=== PATIENT | male | born 1990 | race African-American/Black ===

== ENCOUNTER 2018-06-14 00:46 | Emergency (ER) | payer SELFPAY ==
[~2018-06-14] VITALS: Ht 182.9 cm; Wt 81.6 kg
[2018-06-14] VITALS (7 sets, daily range): BP systolic 109–138; BP diastolic 57–72
[~2018-06-14 00:46] MED LIST: PEPCID40 MG PO; PRILOSEC OTC20 MG ORAL
[2018-06-14] MEDS ORDERED: NKM (00:56)
--- NOTE | 2018-06-14 00:59 | NUR ---
ED Nurse Note: Nursing super called for sitter.
--- NOTE | 2018-06-14 01:08 | Emergency Room Report ---
History of Present Illness General Chief Complaint: Behavioral Complaint Source: Patient Present Illness HPI Is a 27-year-old male brought in by police under 5150 with chief complaint of suicidal attempt. Per police, parents said that he try to cut himself with a knife. They were given knife away from him. He said that he's been depressed and hearing voices but has not had any formal psychiatric diagnosis. Patient said he took 3 tablets of melatonin. He denies suicidal thoughts homicidal thought. Parents said he had a knife and was about to cut his wrist Tuesday to get away from him. They called 911. Police found him on the bathroom floor. Patient denies any complaint other than generalized pain. Allergies: Coded Allergies: NO KNOWN ALLERGIES (Unverified Allergy, Unknown, 02/27/15) Patient History Past Medical History: see triage record, old chart reviewed Past Surgical History: none Family History: none Social History: other Immunizations: other Reviewed Nursing Documentation: PMH: Agreed; PSxH: Agreed Nursing Documentation-PM Past Medical History: No Stated History Review of Systems ENT: Denies: sore throat Cardiovascular: Denies: chest pain, palpitations Gastrointestinal/Abdominal: Denies: nausea, vomiting, diarrhea Musculoskeletal: Denies: back problems Skin: Denies: rash Neurological: Denies: REYNA, seizures All Other Systems: negative except mentioned in HPI Physical Exam Vital Signs Date Time Temp Pulse Resp B/P (MAP) Pulse Ox O2 Delivery O2 Flow Rate FiO2 06/14/18 00:51 97.0 74 16 138/68 99 Room Air vitals normal Sp02 EP Interpretation: reviewed, normal General Appearance: alert/responsive, no apparent distress, non-toxic Head: normocephalic, atraumatic Eyes: PERRL, EOMI ENT: oropharynx normal Neck: supple/symm/no masses Respiratory: effort normal, no rhonchi, no wheezing Cardiovascular: no murmur, gallop, rub Gastrointestinal: non-tender, no mass, non-distended, no rebound/guarding, normal bowel sounds Musculoskeletal: gait & station normal Neurologic: oriented x3, sensory intact, motor strength/tone normal Psychiatric: other - Depressed affect Suicide Risk Assessment: Suicidal Ideation: Yes Had intent to initiate attempt: Yes Pt's plan for suicide attempt: Yes Has means to complete attempt: Yes Skin: no rash, normal palpation Medical Decision Making Diagnostic Impression: Primary Impression: Alcohol intoxication Qualified Codes: F10.920 - Alcohol use, unspecified with intoxication, uncomplicated Additional Impression: Suicidal ideations ER Course Patient presents with acute alcohol intoxication and suicidal ideation. Alcohol level is elevated. We'll repeat. Once normalize, patient will be medically clear. Lab Results Impression labs unremarkable Last Vital Signs Date Time Temp Pulse Resp B/P (MAP) Pulse Ox O2 Delivery O2 Flow Rate FiO2 06/14/18 00:51 97.0 74 16 138/68 99 Room Air Status: improved Disposition: XFER TO PSYCH HOSP/UNIT Condition: Stable Porter Sen MD Jun 14, 2018 01:08
--- NOTE | 2018-06-14 01:15 | NUR ---
ED Nurse Note: pt was brought in by ra Chand from home c/o posible alcohol intoxication. lafd stated pt was telling his mom that he wants to hurt himself. pt denies suicidal ideation, pt stated he took 3 melatonin. as of this moment, pt appears asleep with no skin issues noted. staff will continue to keep a close observation of pt. saftey precautions have been taken, such as removing harmfull material in pt room, and stripping pt down to assess for harmfull objects.
[2018-06-14 01:41] LABS: ANION GAP 16 mmol/L (5-15); BLOOD UREA NITROGEN 16 mg/dL (7-18); CALCIUM 9.1 MG/DL (8.5-10.1); CARBON DIOXIDE 20 MMOL/L (21-32); CHLORIDE 103 MMOL/L (98-107); POTASSIUM 4.7 MMOL/L (3.5-5.1); SODIUM 139 MMOL/L (136-145)
[2018-06-14 01:46] LABS: ALANINE AMINOTRANSFERASE 27 U/L (12-78); ALBUMIN 4.4 G/DL (3.4-5.0); ALBUMIN/GLOBULIN RATIO 1.3 (1.0-2.7); ALKALINE PHOSPHATASE 45 U/L (46-116); ASPARTATE AMINO TRANSFERASE 40 U/L (15-37); BILIRUBIN,TOTAL 0.7 MG/DL (0.2-1.0)
[2018-06-14 02:07] LABS: BASOPHILS % (AUTO) 0.6 % (0.0-2.0); EOSINOPHILS % (AUTO) 0.2 % (0.0-3.0); HEMATOCRIT 43.9 % (42.0-52.0); HEMOGLOBIN 14.5 G/DL (14.2-18.0); LYMPHOCYTES % (AUTO) 17.7 % (20.0-45.0); MEAN CORPUSCULAR VOLUME 87 FL (80-99); NEUTROPHILS % (AUTO) 78.5 % (45.0-75.0); PLATELET COUNT 177 K/UL (150-450); RED BLOOD COUNT 5.06 M/UL (4.70-6.10); RED CELL DISTRIBUTION WIDTH 11.9 % (11.6-14.8); WHITE BLOOD COUNT 9.3 K/UL (4.8-10.8)
--- NOTE | 2018-06-14 02:11 | NUR ---
Pt belongings placed in locker#3.
--- NOTE | 2018-06-14 02:56 | NUR ---
ED Nurse Note: repeat alc lvl at 0730, 0800, per ERMD order.
--- NOTE | 2018-06-14 03:43 | NUR ---
ED Nurse Note: Pt offered sandwhich and milk, pt refused.
--- NOTE | 2018-06-14 05:05 | NUR ---
ED Nurse Note: Blood sugar recheck: 136
--- NOTE | 2018-06-14 08:20 | NUR ---
ED Nurse Note: Spoke to lab, green top for alcohol blood serum.
--- NOTE | 2018-06-14 10:43 | NUR ---
ED Nurse Note: report given to star nurse at [facility]. ambulance ETA [id number]
--- NOTE | 2018-06-14 11:28 | NUR ---
ED Nurse Note: [facility] is here to picking tech the patient. report given to star saldana at [facility]. belongings given to the ambulance personnel. IV removed without complication. ID band removed.
== END 2018-06-14 11:40 ==
LOC: EDBD 00:46 → EDUNIT# 00:46 → EMR 01:04 → CANBEDREQ 04:28 → EMR 11:40
DX: F10.129 Alcohol abuse with intoxication, unspecified (principal); R45.851 Suicidal ideations
CPT/HCPCS: 36415; 80053; 80307; 85025; 99285; G0480; 80329

== ENCOUNTER 2018-10-06 09:59 | Emergency (ER) | payer SELFPAY ==
[~2018-10-06] VITALS: Ht 182.9 cm; Wt 72.6 kg
[~2018-10-06 09:59] MED LIST changes: +NKM
[2018-10-06 10:27] VITALS: BP 143/79
--- NOTE | 2018-10-06 10:34 | Emergency Room Report ---
History of Present Illness General Chief Complaint: Abdominal Pain Source: Patient Present Illness HPI Patient is a 28-year-old male presented after increased abdominal pain. Patient reports having prior history of alcohol abuse. He states that he has not had any alcohol for 2 days. Patient reports having increased pain to the left upper abdomen worse with supine position. He reports having multiple episodes of vomiting. He states he has not been able to eat for several days.Patient denies any hematemesis or bloody stools. He reports having multiple episodes of nausea and vomiting. He states that this had gotten worse after heavy drinking.Pain is described as burning sensation. Allergies: Coded Allergies: NO KNOWN ALLERGIES (Unverified Allergy, Unknown, 02/27/15) Patient History Past Medical History: see triage record Reviewed Nursing Documentation: PMH: Agreed; PSxH: Agreed Nursing Documentation-PMH Past Medical History: No Stated History Review of Systems All Other Systems: negative except mentioned in HPI Physical Exam Vital Signs Date Time Temp Pulse Resp B/P (MAP) Pulse Ox O2 Delivery O2 Flow Rate FiO2 10/06/18 10:14 98.6 89 20 143/79 98 Room Air Sp02 EP Interpretation: reviewed, normal General Appearance: normal inspection, well appearing, no apparent distress, alert, GCS 15 Head: atraumatic ENT: normal ENT inspection, hearing grossly normal, normal voice Neck: normal inspection, full range of motion, supple, no bony tend Respiratory: normal inspection, lungs clear, normal breath sounds, no respiratory distress, no retraction, no wheezing Cardiovascular #1: regular rate, rhythm, no edema Gastrointestinal: normal inspection, normal bowel sounds, non tender, soft, no guarding, no hernia Genitourinary: no CVA tenderness Musculoskeletal: normal inspection, back normal, normal range of motion Neurologic: normal inspection, alert, oriented x3, responsive, 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 Differential diagnoses included ischemic bowel, appendicitis, perforated viscus, abdominal aortic aneurysm, inferior myocardial infarction, viral gastroenteritis among others. Because of complexity of patient's case laboratory testing and imaging studies were ordered. Patient was noted to have recent heavy alcohol use. 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 Patient does not describe any episodes of bleeding.Laboratory testing showed evidence of pancreatitis and adequate hemoglobin. Patient was given IV Ativan with improvement in his tremulousness. He was additionally given some IV acid blockers with some moderate improvement in pain. Patient has a benign abdominal exam does not show evidence of surgical abdomen. Laboratory testing was notable for elevated liver function tests and bilirubin consistent with chronic alcohol abuse.Patient was advised alcohol cessation. He is given prescription for Librium as well as acid blockers. Labs Test 10/06/18 10:46 White Blood Count 7.8 K/UL (4.8-10.8) Red Blood Count 5.53 M/UL (4.70-6.10) Hemoglobin 15.5 G/DL (14.2-18.0) Hematocrit 47.7 % (42.0-52.0) Mean Corpuscular Volume 86 FL (80-99) Mean Corpuscular Hemoglobin 28.1 PG (27.0-31.0) Mean Corpuscular Hemoglobin Concent 32.5 G/DL (32.0-36.0) Red Cell Distribution Width 14.1 % (11.6-14.8) Platelet Count 288 K/UL (150-450) Mean Platelet Volume 6.7 FL (6.5-10.1) Neutrophils (%) (Auto) 72.9 % (45.0-75.0) Lymphocytes (%) (Auto) 19.9 % (20.0-45.0) Monocytes (%) (Auto) 5.9 % (1.0-10.0) Eosinophils (%) (Auto) 0.1 % (0.0-3.0) Basophils (%) (Auto) 1.2 % (0.0-2.0) Urine Color Brown Urine Appearance Clear Urine pH 6 (4.5-8.0) Urine Specific [place] 1.025 (1.005-1.035) Urine Protein 2+ (NEGATIVE) Urine Glucose (UA) Negative (NEGATIVE) Urine Ketones 4+ (NEGATIVE) Urine Blood Negative (NEGATIVE) Urine Nitrite Positive (NEGATIVE) Urine Bilirubin Negative (NEGATIVE) Urine Urobilinogen 4 MG/DL (0.0-1.0) Urine Leukocyte Esterase 1+ (NEGATIVE) Urine RBC 0 /HPF (0 - 0) Urine WBC 0-2 /HPF (0 - 0) Urine Squamous Epithelial Cells None /LPF (NONE/OCC) Urine Bacteria Few /HPF (NONE) Urine Mucus Moderate /LPF (NONE/OCC) Sodium Level 139 MMOL/L (136-145) Potassium Level 4.3 MMOL/L (3.5-5.1) Chloride Level 96 MMOL/L (98-107) Carbon Dioxide Level 23 MMOL/L (21-32) Anion Gap 20 mmol/L (5-15) Blood Urea Nitrogen 10 mg/dL (7-18) Creatinine 1.2 MG/DL (0.55-1.30) Estimat Glomerular Filtration Rate > 60 mL/min (>60) Glucose Level 102 MG/DL (74-106) Calcium Level 10.1 MG/DL (8.5-10.1) Total Bilirubin 3.7 MG/DL (0.2-1.0) Direct Bilirubin 0.5 MG/DL (0.0-0.3) Aspartate Amino Transf (AST/SGOT) 45 U/L (15-37) Alanine Aminotransferase (ALT/SGPT) 42 U/L (12-78) Alkaline Phosphatase 49 U/L (46-116) Total Protein 8.4 G/DL (6.4-8.2) Albumin 4.8 G/DL (3.4-5.0) Globulin 3.6 g/dL Albumin/Globulin Ratio 1.3 (1.0-2.7) Lipase 197 U/L (73-393) Serum Alcohol 5 mg/dL Last Vital Signs Date Time Temp Pulse Resp B/P (MAP) Pulse Ox O2 Delivery O2 Flow Rate FiO2 10/06/18 10:28 89 20 Room Air 10/06/18 10:27 98.6 143/79 98 Status: improved Disposition: HOME, SELF-CARE Condition: Stable Scripts Chlordiazepoxide Hcl* (LIBRIUM*) 10 Mg Capsule 10 MG ORAL THREE TIMES A DAY, #15 CAP 0 Refills Prov: Nish Chau MD 10/06/18 Omeprazole (OMEPRAZOLE) 20 Mg Tablet.dr 20 MG ORAL DAILY, #30 TAB Prov: Nish Chau MD 10/06/18 Referrals: NOT CHOSEN IPA/,REFERRING (PCP) Nish Chau MD Oct 06, 2018 10:34
--- NOTE | 2018-10-06 10:35 | NUR ---
ED Nurse Note: pt walked in c/o rt upper quadrent pain n/v states he made wrong choices and started drinking etoh again. angle seay will monitor.
[2018-10-06] MEDS ORDERED: LORazepam Inj 2mg/ml 1ml IV ONE (10:45)
--- NOTE | 2018-10-06 10:50 | NUR ---
ED Nurse Note: blood and urine sent to lab.
[2018-10-06 11:00] LABS: APPEARANCE,URINE CLEAR; BILIRUBIN, URINE NEGATIVE (NEGATIVE); COLOR,URINE BROWN; GLUCOSE, URINE (UA) NEGATIVE (NEGATIVE); KETONES,URINE 4+ (NEGATIVE); LEUKOCYTE ESTERASE ,URINE 1+ (NEGATIVE); NITRITE,URINE POSITIVE (NEGATIVE); PH,URINE 6 (4.5-8.0); PROTEIN,URINE 2+ (NEGATIVE); UROBILINOGEN,URINE 4 MG/DL (0.0-1.0)
[2018-10-06 11:04] LABS: BASOPHILS % (AUTO) 1.2 % (0.0-2.0); EOSINOPHILS % (AUTO) 0.1 % (0.0-3.0); HEMATOCRIT 47.7 % (42.0-52.0); HEMOGLOBIN 15.5 G/DL (14.2-18.0); LYMPHOCYTES % (AUTO) 19.9 % (20.0-45.0); MEAN CORPUSCULAR VOLUME 86 FL (80-99); MONOCYTES % (AUTO) 5.9 % (1.0-10.0); NEUTROPHILS % (AUTO) 72.9 % (45.0-75.0); PLATELET COUNT 288 K/UL (150-450); RED BLOOD COUNT 5.53 M/UL (4.70-6.10); RED CELL DISTRIBUTION WIDTH 14.1 % (11.6-14.8); WHITE BLOOD COUNT 7.8 K/UL (4.8-10.8)
[2018-10-06 11:10] LABS: ANION GAP 20 mmol/L (5-15); BLOOD UREA NITROGEN 10 mg/dL (7-18); CALCIUM 10.1 MG/DL (8.5-10.1); CARBON DIOXIDE 23 MMOL/L (21-32); CHLORIDE 96 MMOL/L (98-107); CREATININE 1.2 MG/DL (0.55-1.30); POTASSIUM 4.3 MMOL/L (3.5-5.1); SODIUM 139 MMOL/L (136-145)
[2018-10-06 11:17] VITALS: BP 130/87
[2018-10-06 11:20] LABS: ALANINE AMINOTRANSFERASE 42 U/L (12-78); ALBUMIN 4.8 G/DL (3.4-5.0); ALBUMIN/GLOBULIN RATIO 1.3 (1.0-2.7); ALKALINE PHOSPHATASE 49 U/L (46-116); ASPARTATE AMINO TRANSFERASE 45 U/L (15-37); BILIRUBIN,TOTAL 3.7 MG/DL (0.2-1.0)
[2018-10-06 11:22] LABS: BILIRUBIN,DIRECT 0.5 MG/DL (0.0-0.3)
[2018-10-06] MEDS ORDERED: OMEPRAZOLE20 M3 ORAL (12:35)
[2018-10-06] MEDS ORDERED: LIBRIUM10 MG ORAL (12:35)
[2018-10-06 13:20] VITALS: BP 129/86
--- NOTE | 2018-10-06 13:20 | NUR ---
ED Nurse Note: Patient is being discharged from medical care. Patient is awake, alert, oriented x 4. D/C instruction and prescription given to patient and verbalized understanding of it. Removed IV and ID band. Patient ambulated out with steady gait.
== END 2018-10-06 13:30 | disposition home or self-care (01) ==
LOC: EMR 10:25
DX: K29.70 Gastritis, unspecified, without bleeding (principal); F10.10 Alcohol abuse, uncomplicated
CPT/HCPCS: 36415; 80053; 81003; 82248; 83690; 85025; 96361; 96374; 96375; 99284; G0480; J2405; S0028; 80329